=== PATIENT | male | born 1985 | race Two or more races ===

== ENCOUNTER 2023-05-12 16:39 | Emergency (ER) | payer OTHER ==
[~2023-05-12] VITALS: Ht 180.3 cm; Wt 86.2 kg
[2023-05-12 20:50] LABS: URINE APPEARANCE Cloudy; URINE BILIRRUBIN Negative (NEGATIVE); URINE BLOOD Negative; URINE COLOR Yellow; URINE GLUCOSE Negative (NEGATIVE); URINE LEUKOCYTE Trace; URINE NITRATE Negative; URINE PROTEIN Negative (NEGATIVE)
[2023-05-12 20:53] LABS: URINE BACTERIA 123.4 uL (0.0-1933); URINE EPITHELIAL CELLS 8.3 uL (0.0-38.8); URINE RBC 16.9 uL (0.0-20.8); URINE WBC 8.6 uL (0.0-23.2)
== END 2023-05-12 23:07 | disposition home or self-care (01) ==
LOC: ER 16:39
PROVIDERS: Emergency Medicine
DX: N45.1 Epididymitis (principal)